=== PATIENT | male | born 1960 | race Caucasian/White ===

== ENCOUNTER 2019-05-11 19:51 | Emergency (ER) | payer MEDICAID ==
[~2019-05-11] VITALS: Ht 170.2 cm; Wt 61.7 kg
[~2019-05-11 19:51] MED LIST: AMOX500 PO; CLAR500 PO; LANS1COM10 PO; METO10 PO; OMEP40CA12 PO; RXOXYACE PO
== END 2019-05-11 22:59 | disposition home or self-care (01) ==
LOC: ER 19:51
DX: S61.512A Laceration without foreign body of left wrist, initial encounter (principal); F17.200 Nicotine dependence, unspecified, uncomplicated; W07.XXXA Fall from chair, initial encounter
CPT/HCPCS: 12004; 90471; 99282-25

== ENCOUNTER 2019-05-22 11:48 | Emergency (ER) | payer MEDICAID ==
[~2019-05-22] VITALS: Ht 170.2 cm; Wt 61.2 kg
== END 2019-05-22 12:22 | disposition home or self-care (01) ==
LOC: ER 11:48
DX: S61.512D Laceration without foreign body of left wrist, subsequent encounter (principal); F17.200 Nicotine dependence, unspecified, uncomplicated; W26.8XXD Contact with other sharp object(s), not elsewhere classified, subsequent encounter

== ENCOUNTER 2020-12-27 12:05 | Emergency (ER) | payer OTHER ==
[~2020-12-27] VITALS: Ht 175.3 cm; Wt 74.8 kg
[2020-12-27] MEDS ORDERED: CEPH500 PO (12:42)
[2020-12-27] MEDS ORDERED: Bactrim Ds Tab1 EACH PO (12:42)
== END 2020-12-27 12:56 | disposition home or self-care (01) ==
LOC: ER 12:05
DX: L02.511 Cutaneous abscess of right hand (principal); F17.200 Nicotine dependence, unspecified, uncomplicated
CPT/HCPCS: 73140; 87070; 87075; 87077; 87147; 87186; 87205; 99283-25